=== PATIENT | male | born 1990 | race Caucasian/White ===

== ENCOUNTER 2021-07-24 07:25 | Day surgery (SDC) | payer OTHER ==
[2021-07-24] VITALS (11 sets, daily range): BP systolic 112–167; BP diastolic 69–100
[~2021-07-24] VITALS: Ht 182.9 cm; Wt 77.1 kg
--- NOTE | 2021-07-24 07:55 | NUR ---
PATIENT TO ROOM AMBULATORY. ADMISSION ASSESSMENT COMPLETED AT THIS TIME. CONSENT OBTAINED. IV ESTABLISHED. LABS SENT FOR REFERENCE. ORIENTED PATIENT TO ROOM AND UNIT. CALL LIGHT IN REACH. WILL CONTINUE TO MONITOR.
[2021-07-24 10:38] LABS: HEMATOCRIT 43.1 % (39.0-50.0); HEMOGLOBIN 14.5 g/dl (14.0-18.0); IMMATURE GRANULOCYTES 0.4 % (0.0-5.0); MEAN CELL VOLUME 86.5 fL CALC (80.0-100.0); MEAN CORPUSCULAR HGB 29.1 pG CALC (26.0-32.0); MEAN CORPUSCULAR HGB CONC 33.6 g/dL CAL (32.0-36.0); NEUT# 3.02 thou/uL (1.82-7.42); RED BLOOD COUNT 4.98 mill/uL (4.70-6.10); RED CELL DISTRI WIDTH 11.8 % (11.5-15.5)
[2021-07-24 10:51] LABS: ALBUMIN 4.2 g/dL (3.2-5.0); ALKALINE PHOSPHATASE 68 u/l (38-126); ANION GAP 11 (6-22 (CALC)); BILIRUBIN, TOTAL 0.6 mg/dL (0.0-1.4); BUN 15 mg/dL (9-20); BUN/CREATININE RATIO 18 (12-20 (CALC)); CARBON DIOXIDE 30 mmol/l (22-30); CHLORIDE 102 mmol/l (95-108); CREATININE 0.8 mg/dL (0.7-1.3); GFR > 60 ML/MIN (>=60 (CALC)); GFR FOR AFR.AMER. > 60 ML/MIN (>=60 (CALC)); POTASSIUM 4.1 mmol/l (3.5-5.1); SGOT/AST 41 u/l (17-59); SODIUM 139 mmol/l (137-146); TOTAL PROTEIN 7.3 g/dL (6.3-8.2)
--- NOTE | 2021-07-24 11:00 | NUR ---
PATIENT TO ANR PROCEDURE VIA BED
[2021-07-24] MEDS ORDERED: CLONIDINE0.1 MG PO (13:12)
[2021-07-24] MEDS ORDERED: NALTREXONE50 MG PO (13:12)
[2021-07-24] MEDS ORDERED: KLONOPIN0.5 MG PO (13:13)
--- NOTE | 2021-07-24 16:52 | NUR ---
PT ARRIVED ON FLOOR TO ROOM 283. PT STATED HE WAS HOT, BEDSIDE FAN PROVIDED. MINIMAL RESTLESSNESS NOTE AT THIS TIME, PT LYING ON HIS RIGHT SIDE WITH HIS EYES CLOSED
--- NOTE | 2021-07-24 19:30 | NUR ---
PATIENT RESTLESS IN BED AT THIS TIME-ASKING FOR SOMETHING TO SLEEP. C/O NAUSEA WELL. O2 VIA NASAL CANNULA IN PLACE AT 2LPM WITH O2 SAT OF 100%. IVF LR PATENT AND INFUSING VIA RIGHT HAND SITE AT 100CC/HR. VS TAKEN AND RECORDED. SALINE LOCK TO LEFT WRIST INTACT. MEDICATED WITH PHENERGAN 25MG IVPB FOR NAUSEA. BED ALARM IN PLACE AT THIS TIME. CALL LIGHT IN REACH. SAFETY PRECAUTIONS REINFORCED. WILL CONT TO MONITOR.
--- NOTE | 2021-07-24 20:35 | NUR ---
PATIENT RESTING IN BED-TAKING SMALL SIPS OF PO FLUIDS AND TOLERATING WELL AT THIS TIME. VS REMAINS STABLE WITH O2 SAT OF 100% WITH O2 2LPM INPLACE. CONT TO ASK FOR SOMETHING TO RELAX AND SLEEP. MEDICATED WITH ATIVAN 2MG IVP ORDERED FOR ANXIETY. IVF LR REMAIN PATENT AND INFUSING RIGHT HAND SITE. BED ALARM IN PLACE FOR PATIENT SAFETY. PATIENT CONT TO BE CONFUSED TO PLACE AND TIME. CALL LIGHT IN REACH. WILL CONT TO MONITOR.
--- NOTE | 2021-07-24 22:25 | NUR ---
PATIENT RESTING IN BED AT THIS TIME-STILL A BIT RESTLESS. IVF LR AT 100CC/HR VIA RIGHT HAND SITE. O2 VIA NASAL CANNULA IN PLACE. BED ALARM REMAINS IN PLACE FOR PATIENT SAFETY. CALL LIGHT IN REACH. WILL CONT TO MONITOR.
[2021-07-25] VITALS: BP 150/92
--- NOTE | 2021-07-25 00:40 | NUR ---
PATIENT RESTING IN BED BUT GETTING RESTLESS AGAIN. STATES THAT HE WANTS TO SLEEP BUT "HIS BRAIN WON'T LET HIM". TAKING PO FLUIDS AND TOLERATING WELL. C/O "BONE PAIN" AND ASKING FOR TYLENOL OR IBUPROFEN-PATIENT WAS NOTIFIED THAT HE DOESN'T HAVE TYLENOL OR IBUPROFEN ORDERED AT THIS TIME BUT WAS MEDICATED WITH ATIVAN 2MG IVP ORDERED FOR AGITATION. IVF LR REMAIN IN PROGRESS AT 100CC/HR VIA RIGHT HAND SITE. PATIENT HAS BEEN PICKING AT THE DRESSING-REWRAPPED WITH COBAN TO SECURE THE SITE. BED ALARM IN PLACE. SAFETY INSTRUCTIONS GIVEN TO THE PATIENT. CALL LIGHT IN REACH. WILL CONT TO MONITOR.
[2021-07-25 03:50] VITALS: BP 113/68
--- NOTE | 2021-07-25 04:16 | NUR ---
PATIENT RESTING IN BED AT THIS TIME. EASY TO AROUSE. VS TAKEN AND RECORDED. IVF LR PATENT AND INFUSING VIA RIGHT HAND SITE. MEDICATED ORDERED PER EMAR. PATIENT HAS NOT BEEN INCONT TONIGHT-USING URINAL PRN. BED ALARM REMAINS IN PLACE FOR PATIENT SAFETY. CALL LIGHT IN REACH. WILL CONT TO MONITOR.
[2021-07-25 06:00] LABS: HEMATOCRIT 41.4 % (39.0-50.0); HEMOGLOBIN 14.1 g/dl (14.0-18.0); MEAN CELL VOLUME 86.3 fL CALC (80.0-100.0); MEAN CORPUSCULAR HGB 29.4 pG CALC (26.0-32.0); MEAN CORPUSCULAR HGB CONC 34.1 g/dL CAL (32.0-36.0); RED BLOOD COUNT 4.8 mill/uL (4.70-6.10); RED CELL DISTRI WIDTH 11.9 % (11.5-15.5)
[2021-07-25 06:06] LABS: ALBUMIN 4.1 g/dL (3.2-5.0); ALKALINE PHOSPHATASE 65 u/l (38-126); ANION GAP 12 (6-22 (CALC)); BILIRUBIN, TOTAL 0.6 mg/dL (0.0-1.4); BUN 12 mg/dL (9-20); BUN/CREATININE RATIO 14 (12-20 (CALC)); CARBON DIOXIDE 27 mmol/l (22-30); CHLORIDE 105 mmol/l (95-108); CREATININE 0.8 mg/dL (0.7-1.3); GFR > 60 ML/MIN (>=60 (CALC)); GFR FOR AFR.AMER. > 60 ML/MIN (>=60 (CALC)); MAGNESIUM 1.6 mg/dL (1.6-2.3); POTASSIUM 3.8 mmol/l (3.5-5.1); SGOT/AST 39 u/l (17-59); SODIUM 140 mmol/l (137-146); TOTAL PROTEIN 7.1 g/dL (6.3-8.2)
--- NOTE | 2021-07-25 07:11 | NUR ---
SHIFT CHANGE REPORT, PT SLEEPING AT THIS TIME, BREATHING EVEN AND NON-LABORED, NO SIGN DISCOMFORT AT THIS TIME, IVF INFUSING CALL CHAPARRO IN REACH AND BED LOCKED IN LOWEST POSITION.
[2021-07-25 07:52] VITALS: BP 129/69
--- NOTE | 2021-07-25 08:05 | NUR ---
AWAKENED TO TAKE MEDS AT THIS TIME, STATES HE WAS RESTLESS ALL HS AND JUST FELL ASLEEP ABOUT AN HOUR AGO, STATES HES NOT HUNGRY WHEN OFFERED FOOD AND WANTS TO REST, EXPRESSES GRATITIDE FOR CARE, WILL CONTINUE TO MONITOR.
--- NOTE | 2021-07-25 09:26 | NUR ---
STILL SLEEPING AT THIS TIME, BREATHING EVEN AND NON-LABORED, NO SIGN RESTLESNESS/ANXIETY, WILL CONTINUE TO MONITOR.
--- NOTE | 2021-07-25 11:12 | NUR ---
STILL SLEEPING BUT AWAKENS TO VERBAL STIMULI AND RESPONDS APPROPRIATELY, STATES HE WILL HAVE SHOWER AFTER MEAL, WILL CONTINUE TO MONITOR.
--- NOTE | 2021-07-25 12:27 | NUR ---
PT IS STILL IN BED, LETHARGIC, ENCOURAGED TO GET UP AND EAT, STATES HE IS JUST SUPER FATIGUED BUT WILL GET UP SHORTLY TO EAT AND SHOWER, WILL CONTINUE TO MONITOR.
--- NOTE | 2021-07-25 12:48 | NUR ---
FINALLY UP AND IN SHOWER AT THIS TIME AFTER MUCH ENCOURAGEMENT/PROMPTING, BEING MONITORED IN SHOWER FOR SAFETY.
[2021-07-25 13:21] VITALS: BP 109/64
--- NOTE | 2021-07-25 15:47 | NUR ---
RESTING IN BED, ENCOURAGED TO AMBULATE BUT STATES HE IS JUST TIRED AND WANTS TO REST, STATES FAMILY WILL BE RECEIVING HIM SOMETIME TODAY, REFUSED MEALS STATING HE ISNT HUNGRY AND HAS NO APPETITE.
--- NOTE | 2021-07-25 16:15 | NUR ---
Discharge instructions given. Patient verbalizes understanding of same. Discharged in stable condition via Wheelchair to Home with family. All belongings sent with pt.
--- NOTE | 2021-07-25 16:17 | NUR ---
BOTH IV CATHETERS # 20 FROM RH & 18 FROM LW REMOVED WITH TIPS IN PLACE.
== END 2021-07-25 16:20 | disposition home or self-care (01) | DRG 897 ==
LOC: ANR 07:25 → MS2 07:28 → ANR 13:58
PROVIDERS: ATTEND Anesthesiology
DX: F11.20 Opioid dependence, uncomplicated (principal)
CPT/HCPCS: J2060; J2354; J3475